=== PATIENT | female | born 2000 ===

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

== ENCOUNTER 2019-01-04 09:27 | Outpatient (CLI) | payer OTHER | END 2019-01-04 09:28 | disposition home or self-care (01) | LOC: C.MAMMO 09:27 → C.USIC 09:28 | DX: N63.0 Unspecified lump in unspecified breast (principal) ==